=== PATIENT | male | born 1970 | race Hispanic/Latino ===

== ENCOUNTER 2019-08-28 16:50 | Inpatient (IN) | payer BC, OTHER ==
[2019-08-28] MEDS ORDERED: HYDROCODONE/APAP 10/325 TAB ONE (17:44)
[2019-08-28] MEDS ORDERED: NA CHLORIDE 0.9% 1,000 ML ONE (17:50)
[2019-08-28 18:34] LABS: Absolute Lymphocytes (CBC) 0.6 K/uL (0.7-4.9); Basophils % 0.1 % (0-1.3); Hematocrit 40.7 % (39.6-49.0); Lymphocytes % 6.6 % (15.3-44.8); MPV 8.5 fL (7.6-11.3); RBC Red Blood Cell Count 4.86 M/uL (4.33-5.43)
[2019-08-28 18:39] LABS: Protime INR 1.11
--- NOTE | 2019-08-28 18:40 | RAD REPORT ---
EXAM DESCRIPTION: RAD - Chest Single View - 08/28/2019 5:47 pm CLINICAL HISTORY: Cough;SOB;Fever COMPARISON: None TECHNIQUE: AP portable chest image was obtained 08/28/2019 5:47 pm . FINDINGS: Lung volumes are low. Interstitial opacification is present throughout the lung oconnell rojelio ng with patchy airspace disease more notable in the left lung field. Cardiac silhouette is enlarged. Pulmonary vasculature is increased. No measurable pleural effusion and no pneumothorax. No acute bony abnormality seen. No acute aortic findings suspected. IMPRESSION: Limited shallow inspiration exam shows bilateral interstitial and left lower lung field alveolar opacities. In the setting of fever, left base pneumonia is favored. Presentation is mixed and a component of dixie lure or volume overload is possible.
[2019-08-28] MEDS ORDERED: DIAZEPAM 2 MG TABLET ONE (18:56)
[2019-08-28] MEDS ORDERED: dexAMETHasone 10 MG/ML VIAL ONE (18:56)
[2019-08-28] MEDS ORDERED: AZITHROMYCIN 500 MG INJ IVPB ONE (18:56)
[2019-08-28] MEDS ORDERED: CEFTRIAXONE/SWI 1gm 1 GM/10 ML SYR ONE (18:57)
[2019-08-28] MEDS ORDERED: NA CHLORIDE 0.9% 250 ML ONE (18:57)
[2019-08-28 18:58] LABS: Albumin 2.9 g/dL (3.4-5.0); Bilirubin Direct 0.3 mg/dL (0-0.2); Bilirubin Total 0.9 mg/dL (0.2-1.0); Ferritin 1256.9 ng/mL (26-388); Potassium 3.2 mmol/L (3.5-5.1); Protein, Total 7.4 g/dL (6.4-8.2); Troponin (Emerg Dept Use Only) 0.03 ng/mL (0.0-0.045)
[2019-08-28 19:15] LABS: Blood Morphology Comment NOT SEEN (NOT SEEN); Platelet Estimate ADEQ
--- NOTE | 2019-08-28 19:24 | EDPHYS ---
Physician Documentation [facility] Name: Eric Guerrero Age: 48 yrs Sex: Male : 1970 Arrival Date: 08/28/2019 Time: 16:56 Bed 19 Private MD: ED Physician Lucila Euceda HPI: 08/27 19:19 This 48 yrs old Male presents to ER via Ambulatory with complaints of Cough, snw Breathing Difficulty. 19:19 The patient or guardian reports cough, difficulty breathing, flu symptoms. Onset: The snw symptoms/episode began/occurred gradually, 5 day(s) ago, and became worse and became persistent. Severity of symptoms: At their worst the symptoms were severe. Associated signs and symptoms: Pertinent positives: diarrhea, fever, nausea. The patient has not experienced similar symptoms in the past. The patient has not recently seen a physician. PCP called pt out some cough medication which has not been helpful per report. Historical: - Allergies: 17:16 No Known Allergies; bp - Home Meds: 17:16 Metformin Oral [Active]; bp - PMHx: 17:16 Diabetes - NIDDM; bp - Immunization history:: Adult Immunizations unknown. - Social history:: Smoking status: Patient denies any tobacco usage or history of. ROS: 19:19 Eyes: Negative for injury, pain, redness, and discharge, ENT: Negative for injury, snw pain, and discharge, Neck: Negative for injury, pain, and swelling, Cardiovascular: Negative for chest pain, palpitations, and edema. 19:19 Back: Negative for injury and pain, : Negative for injury, bleeding, discharge, and swelling, MS/Extremity: Negative for injury and deformity, Skin: Negative for injury, rash, and discoloration, Neuro: Negative for headache, weakness, numbness, tingling, and seizure, Psych: Negative for depression, anxiety, suicide ideation, homicidal ideation, and hallucinations. 19:19 Constitutional: Positive for body aches, chills, fatigue, fever, malaise, poor PO intake. 19:19 Respiratory: Positive for cough, dyspnea on exertion, shortness of breath. 19:19 Abdomen/GI: Positive for diarrhea. Exam: 19:17 Head/Face: Normocephalic, atraumatic. Eyes: Pupils equal round and reactive to light, snw extra-ocular motions intact. Lids and lashes normal. Conjunctiva and sclera are non-icteric and not injected. Cornea within normal limits. Periorbital areas with no swelling, redness, or edema. ENT: Nares patent. No nasal discharge, no septal abnormalities noted. Tympanic membranes are normal and external auditory canals are clear. Oropharynx with no redness, swelling, or masses, exudates, or evidence of obstruction, uvula midline. Mucous membranes moist. Neck: Trachea midline, no thyromegaly or masses palpated, and no cervical lymphadenopathy. Supple, full range of motion without nuchal rigidity, or vertebral point tenderness. No Meningismus. Chest/axilla: Normal chest wall appearance and motion. Nontender with no deformity. No lesions are appreciated. 19:17 Abdomen/GI: Soft, non-tender, with normal bowel sounds. No distension or tympany. No guarding or rebound. No evidence of tenderness throughout. Back: No spinal tenderness. No costovertebral tenderness. Full range of motion. Skin: Warm, dry with normal turgor. Normal color with no rashes, no lesions, and no evidence of cellulitis. MS/ Extremity: Pulses equal, no cyanosis. Neurovascular intact. Full, normal range of motion. Neuro: Awake and alert, GCS 15, oriented to person, place, time, and situation. Cranial nerves II-XII grossly intact. Motor strength 5/5 in all extremities. Sensory grossly intact. Cerebellar exam normal. Normal gait. Psych: Awake, alert, with orientation to person, place and time. Behavior, mood, and affect are within normal limits. 19:17 Constitutional: The patient appears awake, febrile, listless, obese, obviously ill, uncomfortable. 19:17 Cardiovascular: Rate: tachycardic, Rhythm: regular, Pulses: no pulse deficits are appreciated, Heart sounds: normal, Edema: is not appreciated. 19:17 Respiratory: mild respiratory distress is noted, moderate respiratory distress is noted, Respirations: nasal flaring, that is moderate, shallow respirations, that is moderate, tachypnea, that is severe, Breath sounds: decreased breath sounds, that are moderate, are located in both bases, Respiratory rate: 38 down to 26 on oxygen 19:55 ECG was reviewed by the Attending Physician. snw Vital Signs: 17:13 BP 156 / 89; Pulse 123; Resp 28; Temp 103.1; Pulse Ox 88% on R/A; Weight 158.76 kg; bp Height 6 ft. 6 in. (198.12 cm); 19:04 BP 134 / 68; Pulse 104; Resp 26; Temp 101.6; Pulse Ox 91% ; ah 20:20 BP 125 / 63; Pulse 102; Resp 24; Pulse Ox 91% ; ah 17:13 Body Mass Index 40.45 (158.76 kg, 198.12 cm) bp MDM: 18:46 Patient medically screened. snw 19:20 Data reviewed: vital signs, nurses notes. Data interpreted: Pulse oximetry: on room air snw is 85 %. Interpretation: hypoxia. Plan: O2 by NC applied. Counseling: I had a detailed discussion with the patient and/or guardian regarding: the historical points, exam findings, and any diagnostic results supporting the discharge/admit diagnosis, lab results, radiology results, the need for further work-up and treatment in the hospital. Physician consultation: Lucila Abdi MD was called at 19:21, was contacted at 19:21, regarding admission, Covid floor, would like further tests performed, CT scan. 19:56 ED course: pt returned from CT, feeling significantly better at this time.. snw 08/27 17:25 Order name: Blood Culture Adult (2) snw 08/27 17:25 Order name: BMP w 08/27 17:25 Order name: C-Reactive Protein; Complete Time: 19:32 snw 08/27 17:25 Order name: CBC with Diff; Complete Time: 19:17 snw 08/27 17:25 Order name: COVID-19 snw 08/27 17:25 Order name: D-Dimer; Complete Time: 18:45 snw 08/27 17:25 Order name: Ferritin; Complete Time: 19:32 snw 08/27 17:25 Order name: Flu; Complete Time: 19:32 snw 08/27 17:25 Order name: Lactate; Complete Time: 19:09 snw 08/27 17:25 Order name: LFT's; Complete Time: 19:32 snw 08/27 17:25 Order name: Lipase; Complete Time: 19:32 snw 08/27 17:25 Order name: Procalcitonin; Complete Time: 19:23 snw 08/27 17:25 Order name: PT-INR; Complete Time: 18:45 snw 08/27 17:25 Order name: Ptt, Activated; Complete Time: 18:45 snw 08/27 17:25 Order name: Strep; Complete Time: 19:32 snw 08/27 17:25 Order name: Troponin (emerg Dept Use Only); Complete Time: 19:32 snw 08/27 17:25 Order name: Urine Microscopic Only; Complete Time: 20:42 snw 08/27 17:26 Order name: Blood Culture EDMS 08/27 17:26 Order name: Basic Metabolic Panel; Complete Time: 19:32 EDMS 08/27 18:42 Order name: Manual Differential; Complete Time: 19:17 EDMS 08/27 19:26 Order name: Throat Culture EDMS 08/27 20:26 Order name: Urine Dipstick--Ancillary (enter results); Complete Time: 20:42 2 08/27 20:37 Order name: CBC with Automated Diff EDMS 08/27 20:37 Order name: CBC with Automated Diff EDMS 08/27 20:37 Order name: Comprehensive Metabolic Panel EDMS 08/27 20:37 Order name: Comprehensive Metabolic Panel EDMS 08/27 20:38 Order name: Lactate EDMS 08/27 20:38 Order name: Lactate EDMS 08/27 20:38 Order name: Lipid Profile EDMS 08/27 20:38 Order name: Lipid Profile EDMS 08/27 17:25 Order name: CXR XRAY; Complete Time: 18:45 snw 08/27 17:25 Order name: EKG; Complete Time: 17:27 snw 08/27 17:25 Order name: Cardiac monitoring; Complete Time: 18:37 snw 08/27 17:25 Order name: Document PUI# snw 08/27 17:25 Order name: Droplet/Contact Precautions; Complete Time: 17:52 snw 08/27 17:25 Order name: EKG - Nurse/Tech; Complete Time: 17:52 snw 08/27 17:25 Order name: IV Start; Complete Time: 18:37 snw 08/27 17:25 Order name: Labs collected and sent; Complete Time: 18:37 snw 08/27 17:25 Order name: Notify Health Dept [phone]/ [facility] 08/27 19:17 Order name: CT Chest For PE Angio; Complete Time: 19:58 snw 08/27 20:37 Order name: CONS Physician Consult EDKY 08/27 20:37 Order name: Heart Healthy EDMS 08/27 20:38 Order name: Magnesium EDMS 08/27 20:38 Order name: Magnesium EDMS 08/27 20:38 Order name: NT PRO-BNP EDMS 08/27 20:38 Order name: NT PRO-BNP EDMS 08/27 20:38 Order name: Phosphorus EDMS 08/27 20:38 Order name: Phosphorus EDMS 08/27 20:38 Order name: Protime (+INR) EDMS 08/27 20:38 Order name: Protime (+INR) EDMS 08/27 20:38 Order name: PTT, Activated Partial Thromb EDMS 08/27 20:38 Order name: PTT, Activated Partial Thromb EDMS 08/27 20:38 Order name: T4 Free EDMS 08/27 20:38 Order name: T4 Free EDMS 08/27 20:38 Order name: Thyroid Stimulating Hormone EDMS 08/27 20:38 Order name: Thyroid Stimulating Hormone EDKY 08/27 17:25 Order name: O2 Per Protocol; Complete Time: 17:52 snw 08/27 17:25 Order name: O2 Sat Monitoring; Complete Time: 17:52 snw EC:58 Rate is 116 beats/min. Rhythm is regular. QRS [place] is Normal. ND interval is normal. snw QRS interval is normal. QT interval is normal. No Q waves. Clinical impression: NSR w/ Non-specific ST/T Changes. Administered Medications: 18:00 Drug: NS 0.9% 1000 ml Route: IV; Rate: 1 bolus; Site: left forearm; ah 20:40 Follow up: Response: No adverse reaction; IV Status: Completed infusion ah 18:00 Drug: [place] 10 mg-325 mg 1 tabs Route: PO; ah 19:03 Follow up: Response: No adverse reaction; Pain is decreased 19:02 Drug: Decadron - Dexamethasone 10 mg Route: IVP; Site: left forearm; 20:39 Follow up: Response: No adverse reaction 19:02 Drug: Valium 2 mg Route: PO; ah 20:39 Follow up: Response: No adverse reaction 19:03 Drug: Zithromax 500 mg Route: IVPB; Infused Over: 1 hrs; Site: right forearm; 19:03 Drug: Rocephin 1 grams Route: IV; Rate: calculated rate; Site: left forearm; 20:39 Follow up: Response: No adverse reaction; IV Status: Completed infusion Disposition: 08/28 13:46 Co-signature as Attending Physician, Lucila Euceda MD. [facility] Disposition: 08/28/19 19:23 Hospitalization ordered by Lucila Abdi for Inpatient Admission. Preliminary diagnosis are Pneumonia due to SARS-associated coronavirus, Hypoxemia. - Bed requested for Telemetry/MedSurg (Inpatient). - Status is Inpatient Admission. sg - Condition is Fair. - Problem is new. - Symptoms have improved. Signatures: Dispatcher [employer] EDMS Zakiya Rendon RN RN Garfield Short RN RN Ana Luisa Chavarria, COPPERSMITH HELPER-C COPPERSMITH HELPER-Csnw Jaime Castro RN CHIQUIS Lucila Euceda MD MD [facility] Claire Edmondson RN RN Corrections: (The following items were deleted from the chart) 08/27 20:08 19:23 Hospitalization Ordered by Lucila Abdi MD for Inpatient Admission. Preliminary diagnosis is Pneumonia due to SARS-associated coronavirus; Hypoxemia. Bed requested for Telemetry/MedSurg (Inpatient). Status is Inpatient Admission. Condition is Fair. Problem is new. Symptoms have improved. snw 21:42 20:08 08/28/2019 19:23 Hospitalization Ordered by Lucila Abdi MD for Inpatient sg Admission. Preliminary diagnosis is Pneumonia due to SARS-associated coronavirus; Hypoxemia. Bed requested for Telemetry/MedSurg (Inpatient). Status is Inpatient Admission. Condition is Fair. Problem is new. Symptoms have improved. mw
--- NOTE | 2019-08-28 19:24 | ER ---
Nurse's Notes [facility] Name: Eric Guerrero Age: 48 yrs Sex: Male : 1970 Arrival Date: 08/28/2019 Time: 16:56 Bed 19 Private MD: Diagnosis: Pneumonia due to SARS-associated coronavirus;Hypoxemia Presentation: 08/27 17:13 Chief complaint: Patient states: COUGH, FEVER, SOB x1 WEEK. Coronavirus screen: bp Surgical mask placed on patient. Patient moved to private room, placed in contact and droplet isolation with eye protection until further assessment. Patient reports a cough. Patient reports shortness of breath or difficulty breathing. Patient reports a measured and/or subjective temperature greater than 100.4F. Patient denies travel on a cruise ship or to a country the [facility] currently lists as an affected area. Patient denies contact with known and/or suspected case of COVID-19. SWABBED ON SATURDAY, NO RESULTS YET. Ebola Screen: No symptoms or risks identified at this time. Initial Sepsis Screen: Does the patient meet any 2 criteria? RR > 20 per min. Temp <36.0*C (96.8*F)) or > 38.3*C (100.9*F). HR > 90 bpm. Yes Does the patient have a suspected source of infection? Yes: Productive cough/pneumonia. Risk Assessment: Do you want to hurt yourself or someone else? Patient reports no desire to harm self or others. Onset of symptoms is unknown. 17:13 Method Of Arrival: Ambulatory bp 17:13 Acuity: RAMA 2 bp 17:36 Initial Sepsis Screen: Does the patient meet any 2 criteria?. Historical: - Allergies: 17:16 No Known Allergies; bp - Home Meds: 17:16 Metformin Oral [Active]; bp - PMHx: 17:16 Diabetes - NIDDM; bp - Immunization history:: Adult Immunizations unknown. - Social history:: Smoking status: Patient denies any tobacco usage or history of. Screenin:40 Abuse screen: Denies threats or abuse. Nutritional screening: No deficits noted. Tuberculosis screening: No symptoms or risk factors identified. Fall Risk None identified. Assessment: 17:40 General: Appears uncomfortable, Behavior is calm, cooperative, appropriate for age. General: Reports fever for 1-2 days. Pain: Denies pain. Pain: Denies pain. Complains of pain in generalized. Neuro: Level of Consciousness is awake, alert, Oriented to person, place, time, situation, Appropriate for age. Cardiovascular: Capillary refill < 3 seconds Patient's skin is warm and dry. Rhythm is sinus tachycardia. Respiratory: Reports shortness of breath at rest cough that is non-productive, air hunger Airway is patent Respiratory effort is even, labored, Respiratory pattern is regular, symmetrical, the patient has moderate shortness of breath. GI:. Derm: Skin is intact, is healthy with good turgor. Vital Signs: 17:13 BP 156 / 89; Pulse 123; Resp 28; Temp 103.1; Pulse Ox 88% on R/A; Weight 158.76 kg; bp Height 6 ft. 6 in. (198.12 cm); 19:04 BP 134 / 68; Pulse 104; Resp 26; Temp 101.6; Pulse Ox 91% ; ah 20:20 BP 125 / 63; Pulse 102; Resp 24; Pulse Ox 91% ; ah 17:13 Body Mass Index 40.45 (158.76 kg, 198.12 cm) bp ED Course: 16:56 Patient arrived in ED. mr 17:15 Triage completed. bp 17:16 Arm band placed on. bp 17:22 Ana Luisa Chavarria FNP-C is [facility]. snw 17:22 Lucila Euceda MD is Attending Physician. snw 17:25 Claire Edmondson, RN is Primary Nurse. ah 17:46 CXR XRAY In Process Unspecified. EDMS 18:38 Initial lab(s) drawn, by ED staff, sent to lab. First set of blood cultures drawn by ED ah staff, EKG done, by ED staff, reviewed by Ana Luisa JOE. Inserted saline lock: 18 gauge in right forearm, using aseptic technique. 18:39 Inserted saline lock: 20 gauge in left forearm, using aseptic technique. ah 18:39 Oxygen administration via nasal cannula \T\ 4L/min Response to oxygen therapy: symptoms ah improved. 18:40 Patient has correct armband on for positive identification. Placed in gown. Bed in low ah position. Call light in reach. Side rails up X 1. teletypesetter monitor on. Pulse ox on. NIBP on. 19:22 Lucila Abdi MD is Hospitalizing Provider. snw 19:41 CT Chest For PE Angio In Process Unspecified. EDMS 20:10 Urine collected: clean catch specimen, clear, regan colored. jp3 Administered Medications: 18:00 Drug: NS 0.9% 1000 ml Route: IV; Rate: 1 bolus; Site: left forearm; 20:40 Follow up: Response: No adverse reaction; IV Status: Completed infusion 18:00 Drug: [place] 10 mg-325 mg 1 tabs Route: PO; 19:03 Follow up: Response: No adverse reaction; Pain is decreased 19:02 Drug: Decadron - Dexamethasone 10 mg Route: IVP; Site: left forearm; 20:39 Follow up: Response: No adverse reaction 19:02 Drug: Valium 2 mg Route: PO; 20:39 Follow up: Response: No adverse reaction 19:03 Drug: Zithromax 500 mg Route: IVPB; Infused Over: 1 hrs; Site: right forearm; 19:03 Drug: Rocephin 1 grams Route: IV; Rate: calculated rate; Site: left forearm; 20:39 Follow up: Response: No adverse reaction; IV Status: Completed infusion Outcome: 19:23 Decision to Hospitalize by Provider. snw 20:27 Admitted to Tele accompanied by tech, via stretcher, room 404, with oxygen, with chart, Report called to CHIQUIS Obrien 20:27 Condition: stable 20:27 Instructed on the need for admit. 21:42 Patient left the ED. sg Signatures: Dispatcher [employer] EDGarfield Wilson RN CHIQUIS sg Ana Luisa Chavarria, PRISON TEACHERDanielleC PRISON TEACHER-Leticia Foster Brian, RN RN Fransico Russo jp3 Claire Edmondson, RN CHIQUIS Corrections: (The following items were deleted from the chart) 20:10 19:04 BP 134 / 68; Pulse 104bpm; Resp 26bpm; Pulse Ox 95%; Temp 101.6F; ah
--- NOTE | 2019-08-28 19:54 | RAD REPORT ---
EXAM DESCRIPTION: CT - Chest For Pe Angio - 08/28/2019 7:41 pm CLINICAL HISTORY: Fever;Dyspnea;Cough COMPARISON: Chest Single View dated 08/28/2019 TECHNIQUE: Dynamically enhanced 3 mm thick images of the chest were obtained during administration o f approximately 150mL Isovue 370 IV contrast. Coronal and oblique MIP reconstruction images were gene rated and reviewed. Exam utilizes a protocol to evaluate the pulmonary arterial tree. All CT scans are performed using dose optimization technique as appropriate and may include automated exposure control or mA/KV adjustment according to patient size. FINDINGS: No pulmonary emboli are identified. The aorta as imaged shows no acute or suspicious finding. No pericardial thickening or effusion. Is Numerous ground-glass opacities are present throughout both lung oconnell primarily in a peripheral dis tribution. No dense consolidation. No mass lesion identified. No endobronchial lesions seen. No pleur al effusion or pleural thickening. No mediastinal or hilar suspicious masses. No chest wall masses or abnormal axillary lymphadenopathy. IMPRESSION: No pulmonary emboli identified. Bilateral ground-glass opacities throughout the lung oconnell. In the current clinical environment, COV ID-19 pneumonia should be strongly considered. Ground-glass opacification from failure or volume overload can have this appearance as well.
[2019-08-28] MEDS ORDERED: ONDANSETRON 4 MG/2 ML VIAL IV PRN (20:26)
[2019-08-28 20:39] LABS: Urine Bacteria <20 /HPF (NONE SEEN); Urine Culture Reflex Order NOT NEEDED; Urine RBC <5 /HPF (NONE SEEN)
[2019-08-28 20:41] LABS: Urine Blood 2+ (NEG); Urine Glucose NEGATIVE (NEG); Urine Protein 2+ (NEG); Urine Specific Gravity 1.015 (1.005-1.030); Urine pH 6.5 (5.0-7.0)
[2019-08-28] MEDS ORDERED: CEFTRIAXONE 1 GM/NS 50 ML 1 GM/50 ML BAG IV SCH (21:00)
[2019-08-28] MEDS ORDERED: NA CHLORIDE 0.9% 1,000 ML IV SCH (21:00)
[2019-08-28 22:23] VITALS: BMI 42.2
[2019-08-28] MEDS ORDERED: POTASSIUM CL SA 10 MEQ TAB PO ONE (22:38)
[2019-08-28] MEDS: ENOXAPARIN 40 MG/0.4 ML SQ SCH (23:02)
[2019-08-29] MEDS: dexAMETHasone 10 MG/ML VIAL IV SCH ×3 (00:34→17:14)
[2019-08-29] MEDS: GUAIFENESIN/CODEINE 5ML UCUP PO PRN (05:36)
[2019-08-29 06:45] LABS: Absolute Lymphocytes (CBC) 0.4 K/uL (0.7-4.9); Basophils % 0.1 % (0-1.3); Hematocrit 40.4 % (39.6-49.0); Lymphocytes % 4.5 % (15.3-44.8); MPV 9.3 fL (7.6-11.3); RBC Red Blood Cell Count 4.79 M/uL (4.33-5.43)
[2019-08-29 06:50] LABS: Protime INR 1.05
[2019-08-29 07:10] LABS: Albumin 2.7 g/dL (3.4-5.0); Bilirubin Total 0.7 mg/dL (0.2-1.0); Magnesium 2.2 mg/dL (1.8-2.4); Phosphorus 2.7 mg/dL (2.5-4.9); Potassium 4.1 mmol/L (3.5-5.1); Protein, Total 7.1 g/dL (6.4-8.2); Thyroid Stimulating Hormone 0.55 uIU/mL (0.360-3.740)
--- NOTE | 2019-08-29 07:49 | P.HP ---
Certification for Inpatient Patient admitted to: Inpatient With expected LOS: >2 Midnights Patient will require the following post-hospital care: None Practitioner: I am a practitioner with admitting privileges, knowledge of patient current condition, hospital course, and medical plan of care. Services: Services provided to patient in accordance with Admission requirements found in Title 42 Section 412.3 of the Code of Federal Regulations Patient History Date of Service: 08/28/19 Reason for admission: COVID-19 pneumonia History of Present Illness: Patient is a 48-year-old gentleman who is been short of breath for the last few days. His symptoms have gradually worsened and he is going to see his PCP and had COVID-19 testing performed. Results were is going to take 4-5 days. He had this done on . His symptoms got gradually worse so he came into the emergency room. His x-ray revealed ground-glass opacities. His D-dimer was elevated. He was hypoxic and was requiring more oxygen in the emergency room. Decision was made to do a CT PE protocol. This only revealed the up viral pneumonia. At this time, patient be admitted to the hospital and placed on high-flow oxygen. If we do not have this available then will place on nasal cannula and adjust as go accordingly. Pulmonary consultation. Continue with dexamethasone and antibiotic therapy. Inhaler to bedside. Also recommend patient being in prone position or on his side. Will monitor very closely on general medical floor. Allergies No Known Allergies Allergy (Unverified 08/28/19 22:23) Home Medications: Exenatide Microspheres [Bydureon Pen] 1 noah SQ EVERY 7TH DAY 08/28/19 Metformin HCl [Glucophage] 1 tab PO BID 08/28/19 clomiPHENE citrate [Clomiphene Citrate] 1 tab PO SEECOM 08/28/19 - Past Medical/Surgical History Has patient received pneumonia vaccine in the past: No Diabetic: Yes -: DM -: low back surgery -bulging disc - Family History Father Medical History: Diabetes Mother Medical History: Diabetes - Social History Smoking Status: Never smoker Alcohol use: Yes CD- Drugs: No Caffeine use: No Place of Residence: Home Review of Systems 10-point ROS is otherwise unremarkable Physical Examination - Vital Signs Temperature: 99.1 F Blood Pressure: 120/71 Pulse: 95 Respirations: 19 Pulse Ox (%): 91 - Physical Exam General: Alert, In no apparent distress, Oriented x3, Obese HEENT: Atraumatic, PERRLA, Mucous membr. moist/pink, EOMI, Sclerae nonicteric Neck: Supple, 2+ carotid pulse no bruit, No LAD, Without JVD or thyroid abnormality Respiratory: Diminished, Expiratory wheezes Cardiovascular: Regular rate/rhythm, Normal S1 S2, No murmurs Gastrointestinal: Normal bowel sounds, Soft and benign, Non-distended, No tenderness Musculoskeletal: No clubbing, No swelling, No tenderness Integumentary: No rashes Neurological: Normal gait, Normal speech, Normal strength at 5/5 x4 extr, Normal tone, Sensation intact, Cranial nerves 3-12 intact, Normal affect Lymphatics: No axilla or inguinal lymphadenopathy - Studies Laboratory Data (last 24 hrs) 08/28/19 18:15: PT 13.1 H, INR 1.11, APTT 26.4 08/28/19 18:15: WBC 8.5, Hgb 13.7, Hct 40.7, Plt Count 111 L 08/28/19 18:15: Sodium 128 L, Potassium 3.2 L, BUN 9, Creatinine 0.94, Glucose 187 H, Total Bilirubin 0.9, AST 72 H, ALT 54, Alkaline Phosphatase 62, Lipase 65 L Microbiology Data (last 24 hrs): 08/28/19 18:05 Nasopharnyx Coronavirus COVID-19 PCR - Final 08/28/19 18:05 Throat Group A Streptococcus Rapid Screen - Final 08/28/19 18:05 Nasopharnyx Influenza Type A Antigen Screen - Final 08/28/19 18:05 Nasopharnyx Influenza Type B Antigen Screen - Final Assessment & Plan - Problems (Diagnosis) (1) COVID-19 virus infection Current Visit: Yes Status: Acute (2) Hypoxemia Current Visit: Yes Status: Acute - Plan 1. Continue with IV antibiotics 2. Awaiting COVID-19 testing 3. Repeat chest x-ray is symptoms are progressively worsening 4. High-flow oxygen or if not available adjust oxygen as necessary; prone position; 5. Pulmonary consultation 6. Continue with albuterol inhaler therapy; IV dexamethasone; zinc and vitamin-C 7. O2 per protocol 8. Continue with gentle hydration 9. Repeat labs including D-dimer, ferritin, and CRP 10. GI and DVT prophylaxis Discharge Plan: Home Plan to discharge in: Greater than 2 days - Advance Directives Does patient have a Living Will: No Does patient have a Durable POA for Healthcare: No - Code Status/Comfort Care Code Status Assessed: Yes Code Status: Full Code Critical Care: No Time Spent Managing PTS Care (In Minutes): 40
--- NOTE | 2019-08-29 07:52 | P.PN ---
Subjective Date of Service: 08/29/19 Patient states he is feeling better. However, his oxygen requirements have gone up. Currently he is on a Venti mask at 50%. Once he gets into the prone position his oxygen level goes up to 90-93%. He is not able to stay that way and has to lay on his side which I have encouraged him to rotate in size. Janee aranamonary consultation later today. Review of Systems 10-point ROS is otherwise unremarkable Physical Examination - Vital Signs Temperature: 99.1 F Blood Pressure: 120/71 Pulse: 95 Respirations: 19 Pulse Ox (%): 91 - Physical Exam General: Alert, In no apparent distress, Oriented x3 Respiratory: Diminished, Rhonchi/gurgles Cardiovascular: Regular rate/rhythm, Normal S1 S2, No murmurs Gastrointestinal: Normal bowel sounds, Soft and benign, Non-distended, No tenderness Musculoskeletal: No clubbing, No swelling, No tenderness Lymphatics: No axilla or inguinal lymphadenopathy - Studies Laboratory Data (last 24 hrs) 08/28/19 18:15: PT 13.1 H, INR 1.11, APTT 26.4 08/28/19 18:15: WBC 8.5, Hgb 13.7, Hct 40.7, Plt Count 111 L 08/28/19 18:15: Sodium 128 L, Potassium 3.2 L, BUN 9, Creatinine 0.94, Glucose 187 H, Total Bilirubin 0.9, AST 72 H, ALT 54, Alkaline Phosphatase 62, Lipase 65 L Microbiology Data (last 24 hrs): 08/28/19 18:05 Nasopharnyx Coronavirus COVID-19 PCR - Final 08/28/19 18:05 Throat Group A Streptococcus Rapid Screen - Final 08/28/19 18:05 Nasopharnyx Influenza Type A Antigen Screen - Final 08/28/19 18:05 Nasopharnyx Influenza Type B Antigen Screen - Final Medications List Reviewed: Yes Assessment & Plan - Problems (Diagnosis) (1) COVID-19 virus infection Current Visit: Yes Status: Acute (2) Hypoxemia Current Visit: Yes Status: Acute - Plan Continue with current plan of care as mentioned below; oxygen requirements have gone up. Currently on Venti-mask at 50%. 1. Continue with IV antibiotics 2. Awaiting COVID-19 testing 3. Repeat chest x-ray if symptoms are progressively worsening 4. High-flow oxygen or if not available adjust oxygen as necessary; prone position; 5. Pulmonary consultation 6. Continue with albuterol inhaler therapy; IV dexamethasone; zinc and vitamin-C 7. O2 per protocol 8. Continue with gentle hydration 9. Repeat labs including D-dimer, ferritin, and CRP 10. GI and DVT prophylaxis Discharge Plan: Home Plan to discharge in: Greater than 2 days - Advance Directives Does patient have a Living Will: No Does patient have a Durable POA for Healthcare: No - Code Status/Comfort Care Code Status: Full Code Critical Care: No Time Spent Managing PTS Care (In Minutes): 25
--- NOTE | 2019-08-29 08:56 | EKG ---
Test Date: 2019-08-28 Test Time: 17:57:17 [employer] Specialist: LATOYA MEASUREMENT RESULTS: Intervals: Rate: 116 [place]: 140 QRSD: 84 QT: 310 QTc: 430 [place]: P: 33 [place]: 140 QRS: 24 T: 41 INTERPRETIVE STATEMENTS: Sinus tachycardia Cannot rule out Anterior infarct, age undetermined Abnormal ECG No previous ECG available for comparison Electronically Signed On 08-29-19 08:55:15 CDT by Andrey Barrett
[2019-08-29] MEDS ORDERED: CEFTRIAXONE 1 GM/NS 50 ML 1 GM/50 ML BAG IV SCH (09:00)
[2019-08-29] MEDS ORDERED: CEFTRIAXONE/SWI 1gm 1 GM/10 ML SYR IVP SCH (09:00)
[2019-08-29] MEDS ORDERED: ENOXAPARIN 40 MG/0.4 ML SQ SCH (09:00)
[2019-08-29] MEDS ORDERED: FUROSEMIDE 20 MG/ 2ML VIAL IV SCH (09:00)
[2019-08-29] MEDS: levoFLOXacin 500 MG TAB PO SCH (09:55)
[2019-08-29] MEDS: ENOXAPARIN 40 MG/0.4 ML SQ SCH ×2 (09:57→20:17)
[2019-08-29] MEDS: ALBUTEROL INHALER 60 PUFF/8 GM IH PRN (10:07)
--- NOTE | 2019-08-29 11:37 | P.CNS ---
Date of Consult: 08/29/19 Reason for Consult: covid pneumonai Chief Complaint: COVID-19 pneumonia History of Present Illness: Patient is 48 years of age the complaining of progressive shortness of breath CT scan shows bilateral ground-glass changes he was hypoxic admitted to the hospit al for the possibility of snell virus infection/ Allergies No Known Allergies Allergy (Unverified 08/28/19 22:23) Home Medications: Exenatide Microspheres [Bydureon Pen] 1 noah SQ EVERY 7TH DAY 08/28/19 Metformin HCl [Glucophage] 1 tab PO BID 08/28/19 clomiPHENE citrate [Clomiphene Citrate] 1 tab PO SEECOM 08/28/19 - Past Medical/Surgical History Diabetic: Yes -: DM -: low back surgery -bulging disc - Family History Father Medical History: Diabetes Mother Medical History: Diabetes - Social History Alcohol use: Yes CD- Drugs: No Caffeine use: No Place of Residence: Home Review of Systems General: Weakness Respiratory: Shortness of Breath Physical Examination Temp Pulse Resp BP Pulse Ox 99.1 F 108 H 19 143/83 H 91 08/29/19 07:52 08/29/19 10:04 08/29/19 07:52 08/29/19 10:04 08/29/19 07:52 General: Other (Deferred) Laboratory Data (last 24 hrs) 08/28/19 18:15: PT 13.1 H, INR 1.11, APTT 26.4 08/28/19 18:15: WBC 8.5, Hgb 13.7, Hct 40.7, Plt Count 111 L 08/28/19 18:15: Sodium 128 L, Potassium 3.2 L, BUN 9, Creatinine 0.94, Glucose 187 H, Total Bilirubin 0.9, AST 72 H, ALT 54, Alkaline Phosphatase 62, Lipase 65 L - Problems (1) COVID-19 virus infection Current Visit: Yes Status: Acute Plan: Patient is 48 years of age admitted with coronal virus infection pneumonia continue with steroids IV Lasix BiPAP he has got characteristic bone bilateral ground-glass changes history of diabetes patient has fever all labs reviewed
[2019-08-29] MEDS: FUROSEMIDE 20 MG/ 2ML VIAL IV SCH (17:14)
[2019-08-29] MEDS ORDERED: AZITHROMYCIN IV 500 MG in NA CHLORIDE 0.9% 250 ML IVPB SCH (19:00)
[2019-08-29] MEDS: ALPRAZOLAM 0.25 MG TABLET PO PRN (20:17)
[2019-08-29] MEDS ORDERED: GLUCAGON 1 MG/VIAL IM PRN (21:05)
[2019-08-29] MEDS ORDERED: D50W 25 GM/50 ML SYRINGE/VIAL IV PRN (21:05)
[2019-08-29] MEDS: INSULIN GLARGINE 100 UNITS/ML SQ SCH (21:19)
[2019-08-29] MEDS: ACETAMINOPHEN 500 MG TAB PO PRN (22:26)
[2019-08-30] MEDS: dexAMETHasone 10 MG/ML VIAL IV SCH (00:11)
[2019-08-30] MEDS: dexAMETHasone 4 MG/ML VIAL IV SCH ×2 (08:10→17:38)
[2019-08-30] MEDS: FUROSEMIDE 20 MG/ 2ML VIAL IV SCH ×2 (08:11→17:37)
[2019-08-30] MEDS: levoFLOXacin 500 MG TAB PO SCH (08:12)
[2019-08-30] MEDS: ENOXAPARIN 40 MG/0.4 ML SQ SCH ×2 (08:12→21:30)
[2019-08-30] MEDS: ACETAMINOPHEN 500 MG TAB PO PRN (08:12)
[2019-08-30] MEDS: ALBUTEROL INHALER 60 PUFF/8 GM IH PRN ×2 (09:00→21:00)
--- NOTE | 2019-08-30 10:42 | P.PN ---
Subjective Date of Service: 08/30/19 Chief Complaint: COVID-19 pneumonia Subjective: Improving (Patient is doing better feeling better shortness of breath has improved BiPAP is helping) Review of Systems General: Weakness Respiratory: Shortness of Breath Physical Examination - Vital Signs Temperature: 100 F Blood Pressure: 119/62 Pulse: 104 Respirations: 24 Pulse Ox (%): 90 - Physical Exam General: Alert, Oriented x3, Mild distress Respiratory: Crackles/rales Cardiovascular: No edema, Regular rate/rhythm - Studies Medications List Reviewed: Yes Assessment & Plan - Problems (Diagnosis) (1) COVID-19 virus infection Current Visit: Yes Status: Acute Plan: Patient is clinically improving continue with steroids BiPAP continue to monitor when sat as above 90% possible discharge and Lasix labs for tomorrow still less some fever
[2019-08-30] MEDS ORDERED: FUROSEMIDE 20 MG/ 2ML VIAL IV SCH (11:00)
[2019-08-30] MEDS ORDERED: GLUCAGON 1 MG/VIAL IM PRN (17:58)
[2019-08-30] MEDS ORDERED: D50W 25 GM/50 ML SYRINGE/VIAL IV PRN (17:58)
[2019-08-30] MEDS: INSULIN -REGULAR HUMAN 50 UNIT/0.5 ML ML SQ SCH (20:30)
[2019-08-30] MEDS: INSULIN GLARGINE 100 UNITS/ML SQ SCH (20:30)
[2019-08-30] MEDS: ALPRAZOLAM 0.25 MG TABLET PO PRN (22:52)
[2019-08-31] MEDS: dexAMETHasone 4 MG/ML VIAL IV SCH ×4 (00:19→17:21)
[2019-08-31 04:24] LABS: Potassium 3.7 mmol/L (3.5-5.1)
[2019-08-31] MEDS: ENOXAPARIN 40 MG/0.4 ML SQ SCH ×2 (07:47→19:29)
[2019-08-31] MEDS: levoFLOXacin 500 MG TAB PO SCH (07:48)
[2019-08-31] MEDS: FUROSEMIDE 20 MG/ 2ML VIAL IV SCH ×2 (07:48→17:21)
[2019-08-31] MEDS ORDERED: POTASSIUM CL SA 10 MEQ TAB PO ONE (08:00)
[2019-08-31] MEDS: INSULIN -REGULAR HUMAN 50 UNIT/0.5 ML ML SQ SCH ×4 (08:07→21:01)
--- NOTE | 2019-08-31 13:04 | P.PN ---
Subjective Date of Service: 08/31/19 Chief Complaint: COVID-19 pneumonia Subjective: Improving (Patient is feeling better still requiring significant amount of oxygen advice to use BiPAP) Review of Systems Respiratory: Shortness of Breath Physical Examination - Vital Signs Temperature: 98 F Blood Pressure: 141/79 Pulse: 91 Respirations: 20 Pulse Ox (%): 90 - Physical Exam General: Alert, Cooperative - Studies Microbiology Data (last 24 hrs): 08/28/19 18:05 Throat Culture & Sensitivity - Final NORMAL UPPER RESPIRATORY SHIREEN GROWN. Medications List Reviewed: Yes Assessment & Plan - Problems (Diagnosis) (1) COVID-19 virus infection Current Visit: Yes Status: Acute Plan: Patient admitted with COVID pneumonia possible discharge tomorrow vital signs are stable possible discharge tomorrow continue with steroids and Lasix
--- NOTE | 2019-08-31 18:02 | P.PN ---
Subjective Date of Service: 08/31/19 Chief Complaint: COVID-19 pneumonia Subjective: Doing well (Still on nasal cannula) Physical Examination - Vital Signs Temperature: 98.2 F Blood Pressure: 133/81 Pulse: 92 Respirations: 24 Pulse Ox (%): 90 - Physical Exam General: Alert, Cooperative HEENT: Atraumatic Neck: Supple Respiratory: Other (Patient reports improvement in breathing) Cardiovascular: Normal pulses, Regular rate/rhythm Neurological: Normal speech, Normal strength at 5/5 x4 extr, Normal tone, Normal affect - Studies Microbiology Data (last 24 hrs): 08/28/19 18:05 Throat Culture & Sensitivity - Final NORMAL UPPER RESPIRATORY SHIREEN GROWN. Medications List Reviewed: Yes Assessment & Plan Discharge Plan: Home Plan to discharge in: 24 Hours Physician Review Additional Text: Impression: Bilateral pneumonia with hypoxia secondary to COVID 19 infection Diabetes mellitus type 2 Plan: Continue with antibiotic therapy for secondary infection. Continue IV steroids. Continue wean off oxygen. Will offer, less than plasma. Will increase basal insulin. Will continue to adjust medication. Patient overall improved. Possible discharge as early as tomorrow with home oxygen if stable. Will further discuss with pulmonology. Time Spent Managing Pts Care (In Minutes): 55
[2019-08-31] MEDS: ALPRAZOLAM 0.25 MG TABLET PO PRN (19:10)
[2019-08-31] MEDS ORDERED: INSULIN GLARGINE 100 UNITS/ML SQ SCH (21:00)
[2019-09-01] MEDS: dexAMETHasone 4 MG/ML VIAL IV SCH ×2 (00:08→07:18)
[2019-09-01] MEDS: GUAIFENESIN/CODEINE 5ML UCUP PO PRN (00:09)
[2019-09-01 04:03] LABS: Potassium 3.7 mmol/L (3.5-5.1)
[2019-09-01] MEDS ORDERED: POTASSIUM CL SA 10 MEQ TAB PO ONE (04:08)
[2019-09-01] MEDS: ENOXAPARIN 40 MG/0.4 ML SQ SCH ×2 (07:18→21:43)
[2019-09-01] MEDS: levoFLOXacin 500 MG TAB PO SCH (07:19)
[2019-09-01] MEDS: FUROSEMIDE 20 MG/ 2ML VIAL IV SCH (07:19)
[2019-09-01] MEDS: INSULIN -REGULAR HUMAN 50 UNIT/0.5 ML ML SQ SCH ×4 (07:38→21:44)
[2019-09-01] MEDS: FUROSEMIDE 20 MG TABLET PO SCH (08:11)
[2019-09-01] MEDS: SPIRONOLACTONE 25 MG TABLET PO SCH ×2 (08:45→21:42)
--- NOTE | 2019-09-01 13:03 | P.PN ---
Subjective Date of Service: 09/01/19 Chief Complaint: COVID-19 pneumonia Subjective: Improving (Patient is improving doing well still requiring oxygen no new complaints) Review of Systems Unremarkable General: Weakness Physical Examination - Vital Signs Temperature: 98 F Blood Pressure: 126/75 Pulse: 82 Respirations: 18 Pulse Ox (%): 92 - Physical Exam General: Other (Deferred) - Studies Microbiology Data (last 24 hrs): 08/28/19 18:05 Throat Culture & Sensitivity - Final NORMAL UPPER RESPIRATORY SHIREEN GROWN. Medications List Reviewed: Yes Assessment & Plan - Problems (Diagnosis) (1) COVID-19 virus infection Current Visit: Yes Status: Acute Plan: Patient is doing well is clinically improving wants to go home he qualifies for home O2 and be discharged home on about 4 L of oxygen AL I have asked him to monitor his oxygen saturation with a home pulse ox anti use oxygen if his below 90 in go home on low-dose prednisone no antibiotics needed follow-up with a telephone visit in 2 weeks patient is a fever I will
--- NOTE | 2019-09-01 16:25 | P.PN ---
Subjective Date of Service: 09/01/19 Chief Complaint: COVID-19 pneumonia Subjective: Improving, Doing well Physical Examination - Vital Signs Temperature: 98 F Blood Pressure: 131/75 Pulse: 82 Respirations: 18 Pulse Ox (%): 92 - Physical Exam General: Alert HEENT: Atraumatic Neck: Supple Respiratory: Other (Patient still requiring 6 L per nasal cannula) Cardiovascular: Normal pulses Neurological: Normal speech, Normal strength at 5/5 x4 extr, Normal tone, Normal affect - Studies Medications List Reviewed: Yes Assessment & Plan Discharge Plan: Home Plan to discharge in: 24 Hours Physician Review Additional Text: Impression: Bilateral pneumonia with hypoxia secondary to COVID 19 infection Diabetes mellitus type 2 Plan: Bilateral pneumonia with hypoxia secondary to COVID 19 infection: Continue current IV steroids. Continue to wean off oxygen. Patient still requiring high-flow oxygen. If improved with high-flow oxygen will consider discharge w [facility] home oxygen. Patient offered plasma. He has agreed. Will initiate process for this. Case discussed at length with pulmonology. Diabetes mellitus type 2: Continue to adjust insulin therapy. Time Spent Managing Pts Care (In Minutes): 55
[2019-09-01] MEDS: INSULIN GLARGINE 100 UNITS/ML SQ SCH ×2 (21:00→21:43)
[2019-09-02] MEDS: ALPRAZOLAM 0.25 MG TABLET PO PRN (00:29)
[2019-09-02 04:47] LABS: Potassium 3.4 mmol/L (3.5-5.1)
[2019-09-02] MEDS ORDERED: POTASSIUM CL SA 10 MEQ TAB PO ONE (06:00)
[2019-09-02] MEDS: levoFLOXacin 500 MG TAB PO SCH (08:11)
[2019-09-02] MEDS: SPIRONOLACTONE 25 MG TABLET PO SCH ×2 (08:11→20:22)
[2019-09-02] MEDS: FUROSEMIDE 20 MG TABLET PO SCH (08:11)
[2019-09-02] MEDS: ENOXAPARIN 40 MG/0.4 ML SQ SCH (08:11)
[2019-09-02] MEDS: dexAMETHasone 10 MG/ML VIAL IV SCH ×2 (08:21→16:06)
[2019-09-02] MEDS: INSULIN -REGULAR HUMAN 50 UNIT/0.5 ML ML SQ SCH ×3 (08:23→16:06)
[2019-09-02] MEDS ORDERED: dexAMETHasone 10 MG/ML VIAL IV SCH (09:00)
--- NOTE | 2019-09-02 11:47 | P.PN ---
Subjective Date of Service: 09/02/19 Chief Complaint: COVID-19 pneumonia Subjective: Doing well Physical Examination - Vital Signs Temperature: 98.7 F Blood Pressure: 119/73 Pulse: 96 Respirations: 22 Pulse Ox (%): 90 - Physical Exam General: Alert HEENT: Atraumatic Neck: Supple Respiratory: Other (Still requiring high-flow oxygen) Neurological: Normal speech, Normal strength at 5/5 x4 extr, Normal tone - Studies Medications List Reviewed: Yes Assessment & Plan Discharge Plan: Home Plan to discharge in: 72 Hours Physician Review Additional Text: Impression: Bilateral pneumonia with hypoxia secondary to COVID 19 infection Diabetes mellitus type 2 Plan: Bilateral pneumonia with hypoxia secondary to COVID 19 infection: Continue current medications at this time. Patient has agreed for plasma. Will order plasma today. Will discuss further with pulmonology. Patient slowly improving but requiring high-flow oxygen. Continue current management. Diabetes mellitus type 2: Continue to adjust insulin therapy. Time Spent Managing Pts Care (In Minutes): 55
--- NOTE | 2019-09-02 12:34 | P.PN ---
Subjective Date of Service: 09/02/19 Chief Complaint: COVID-19 pneumonia Subjective: Improving (Patient is feeling better although is a requiring significant amount of oxygen all the complain) Review of Systems Respiratory: Shortness of Breath Physical Examination - Vital Signs Temperature: 98.7 F Blood Pressure: 119/73 Pulse: 96 Respirations: 22 Pulse Ox (%): 90 - Physical Exam General: Alert, Oriented x3, Cooperative - Studies Medications List Reviewed: Yes Assessment & Plan - Problems (Diagnosis) (1) COVID-19 virus infection Current Visit: Yes Status: Acute Plan: Patient admitted with snell virus pneumonia continue with BiPAP presume Decadron agree with convalescent plasma chemistries reviewed chest x-ray has been order labs unremarkable Lantus increased
--- NOTE | 2019-09-02 14:49 | RAD REPORT ---
EXAM DESCRIPTION: RAD - Chest Single View - 09/02/2019 2:23 pm CLINICAL HISTORY: Pneumonia COMPARISON: Portable August 27, CT chest August 27 TECHNIQUE: AP portable chest image was obtained 09/02/2019 2:23 pm . FINDINGS: Alveolar opacities are scattered throughout both lung oconnell. Pattern is most prominent in each mid lung field in the left base. Findings are worse on the left. Exam has technical differences compared to the prior study. There is been no improvement from the sakina or study. Left lung field findings may be slightly worse. Heart and vasculature are normal. No measurable pleural effusion and no pneumothorax. No acute bony abnormality seen. No acute aortic findings suspected. IMPRESSION: Bilateral pneumonia pattern worse on the left. Findings are similar to slightly worse than prior study.
[2019-09-02] MEDS: APIXABAN 5 MG TABLET PO SCH (20:22)
[2019-09-02] MEDS ORDERED: NA CHLORIDE 0.9% 100 ML IV ONE (22:04)
[2019-09-03] MEDS: INSULIN GLARGINE 100 UNITS/ML SQ SCH ×2 (00:57→21:19)
[2019-09-03] MEDS: INSULIN -REGULAR HUMAN 50 UNIT/0.5 ML ML SQ SCH ×5 (00:58→21:20)
[2019-09-03] MEDS: dexAMETHasone 10 MG/ML VIAL IV SCH ×3 (01:01→18:11)
--- NOTE | 2019-09-03 07:18 | RAD REPORT ---
EXAM DESCRIPTION: Pan Single View09/03/2019 5:21 am CLINICAL HISTORY: Chest pain COMPARISON: August 31, 2019 FINDINGS: Mild worsening in the bilateral pulmonary opacities The heart remains enlarged IMPRESSION: Mild worsening in bilateral pulmonary opacities probably pneumonia
[2019-09-03] MEDS: levoFLOXacin 500 MG TAB PO SCH (09:44)
[2019-09-03] MEDS: SPIRONOLACTONE 25 MG TABLET PO SCH ×2 (09:45→21:18)
[2019-09-03] MEDS: FUROSEMIDE 20 MG TABLET PO SCH (09:45)
[2019-09-03] MEDS: APIXABAN 5 MG TABLET PO SCH ×2 (09:46→21:19)
--- NOTE | 2019-09-03 12:42 | P.PN ---
Subjective Date of Service: 09/03/19 Chief Complaint: COVID-19 pneumonia Subjective: Improving (Slowly improving is still hypoxic acquiring up to 6 L of oxygen over his sats to go up on deep breaths) Review of Systems General: Weakness Respiratory: Shortness of Breath Physical Examination - Vital Signs Temperature: 98.1 F Blood Pressure: 141/79 Pulse: 93 Respirations: 18 Pulse Ox (%): 91 - Physical Exam General: Alert, In no apparent distress, Oriented x3 - Studies Microbiology Data (last 24 hrs): 08/28/19 18:00 Blood - Blood Aerobic Blood Culture - Final No growth in 5 days. 08/28/19 18:00 Blood - Blood Anaerobic Blood Culture - Final No growth in 5 days. 08/28/19 18:15 Blood - Blood Aerobic Blood Culture - Final No growth in 5 days. 08/28/19 18:15 Blood - Blood Anaerobic Blood Culture - Final No growth in 5 days. Medications List Reviewed: Yes Assessment & Plan - Problems (Diagnosis) (1) COVID-19 virus infection Current Visit: Yes Status: Acute Plan: Patient is improving agree with full anticoagulation and for discharge tomorrow on 4-6 L of oxygen incentive spirometry every 1-2 hr low-dose prednisone 10 mg twice a day an outpatient anticoagulation for 2 weeks high risk for thromboembolism low-dose prednisone
--- NOTE | 2019-09-03 18:45 | P.PN ---
Subjective Date of Service: 09/03/19 Chief Complaint: COVID-19 pneumonia Subjective: Improving Physical Examination - Vital Signs Temperature: 98 F Blood Pressure: 136/80 Pulse: 91 Respirations: 18 Pulse Ox (%): 92 - Physical Exam General: Alert, Cooperative HEENT: Atraumatic Neck: Supple Respiratory: Other (Patient without respiratory distress patient reports improvement) Cardiovascular: Normal pulses Neurological: Normal speech, Normal strength at 5/5 x4 extr, Normal tone, Normal affect - Studies Microbiology Data (last 24 hrs): 08/28/19 18:00 Blood - Blood Aerobic Blood Culture - Final No growth in 5 days. 08/28/19 18:00 Blood - Blood Anaerobic Blood Culture - Final No growth in 5 days. 08/28/19 18:15 Blood - Blood Aerobic Blood Culture - Final No growth in 5 days. 08/28/19 18:15 Blood - Blood Anaerobic Blood Culture - Final No growth in 5 days. Medications List Reviewed: Yes Assessment & Plan Discharge Plan: Home Plan to discharge in: 48 Hours Physician Review Additional Text: Impression: Bilateral pneumonia with hypoxia secondary to COVID 19 infection Diabetes mellitus type 2 Plan: Bilateral pneumonia with hypoxia secondary to COVID 19 infection: Patient reports improvement. Continue current medications. Will wean off high-flow oxygen. Case discussed at length with pulmonology. Anticipate improvement over the next 48 hr. Possible discharge with home oxygen if requirement is 2 L or less. Diabetes mellitus type 2: Continue to adjust insulin therapy. Time Spent Managing Pts Care (In Minutes): 55
[2019-09-04] MEDS: dexAMETHasone 10 MG/ML VIAL IV SCH ×3 (00:12→17:23)
[2019-09-04] MEDS: SPIRONOLACTONE 25 MG TABLET PO SCH (08:27)
[2019-09-04] MEDS: levoFLOXacin 500 MG TAB PO SCH (08:27)
[2019-09-04] MEDS: APIXABAN 5 MG TABLET PO SCH (08:27)
[2019-09-04] MEDS: INSULIN -REGULAR HUMAN 50 UNIT/0.5 ML ML SQ SCH ×3 (08:28→16:30)
[2019-09-04] MEDS: FUROSEMIDE 20 MG TABLET PO SCH (08:28)
[2019-09-04 08:40] VITALS: O2SAT 91
[2019-09-04 11:01] VITALS: BP 111/70; TEMP 98
--- NOTE | 2019-09-04 14:42 | P.DS ---
Admission Date: 08/28/19 Discharge Date: 09/04/19 Primary Care Provider: none Disposition: ROUTINE DISCHARGE Discharge Condition: GOOD Reason for Admission: COVID-19 pneumonia Consultations: Pulmonary-Dr. Sevilla Procedures: Ct Scan: FINDINGS: No pulmonary emboli are identified. The aorta as imaged shows no acute or suspicious finding. No pericardial th ickening or effusion Numerous ground-glass opacities are present throughout both lung oconnell primarily in a peripheral distribution. No dense consolidation. No mass lesion identified. No endobronchial lesions seen. No pleural effusion or pleural thickening. No mediastinal or hilar suspicious masses. No chest wall masses or abnormal axillary lymphadenopathy. IMPRESSION: No pulmonary emboli identified. Bilateral ground-glass opacities throughout the lung oconnell. In the current clinical environment, COVID-19 pneumonia should be strongly considered. Ground-glass opacification from failure or volume overload can have this appearance as well. Medical Problem List: Bilateral pneumonia with hypoxia secondary to COVID 19 infection Diabetes mellitus type 2 Brief History of Present Illness: 48-year-old male with history of diabetes presented to emergency room with increasing shortness of breath. Patient was hypoxic upon evaluation. CT scan revealed viral pneumonia bilateral. Patient was admitted for further evaluation and treatment. Hospital Course: Patient presented with shortness of breast secondary to bilateral pneumonia out with hypoxia secondary to COVID 19 infection. Patient required IV steroids, DVT prophylaxis, and convalescent plasma. The patient was also evaluated by pulmonology. The patient slowly improved. At discharge patient still requires oxygen. He has been able to walk and do adult daily living activities in the room. He is without significant shortness of breath. After discussion with pulmonology and the patient, he was comfortable going home with home oxygen. At discharge home oxygen will be arranged to maintain sats above 93%. Patient currently on 4 L. At discharge patient will continue with prednisone 10 mg 1 pill twice daily for 7 days. Recommendation is for the patient to follow up with pulmonology as a tele visit within 1 week to monitors progress. Pulmonology also recommends that the patient by a pulse oximeter to monitor his oxygen level. Prior to discharge patient will continue quarantine for at least 14 days. Health department will follow his progress. CDC guidelines will be provided. Patient will continue with mask at home and frequent hand washing. Patient with diabetes mellitus type 2. Patient required basal insulin. Patient currently on Lantus. At discharge will recommend to continue Lantus at 30 units subcu at bedtime. He may continue with metformin and bydureon. Recommend to monitor his blood sugars at least twice daily. Recommend to maintain blood sugar less 140 fasting and less than 200 after meals. Patient may increase Lantus by 1-2 units if blood sugars remain above 200. Patient will establish care with a local physician to continue to monitor his blood sugars closely. Vital Signs/Physical Exam: Temp Pulse Resp BP Pulse Ox 98 F 75 18 111/70 92 09/04/19 12:00 09/04/19 12:00 09/04/19 12:00 09/04/19 12:00 09/04/19 12:00 General: Alert, In no apparent distress, Oriented x3, Cooperative HEENT: Atraumatic Neck: Supple Respiratory: Other (Patient breathing appropriately. No labored breathing noted.) Cardiovascular: Normal pulses, Regular rate/rhythm Neurological: Normal speech, Normal strength at 5/5 x4 extr, Normal tone, Normal affect Laboratory Data at Discharge: WBC 9.7 K/uL (4.3-10.9) D 08/29/19 06:33 Hgb 13.8 g/dL (13.6-17.9) 08/29/19 06:33 Hct 40.4 % (39.6-49.0) 08/29/19 06:33 Plt Count 136 K/uL (152-406) L D 08/29/19 06:33 PT 12.4 SECONDS (9.5-12.5) 08/29/19 06:33 INR 1.05 08/29/19 06:33 APTT 28.7 SECONDS (24.3-36.9) 08/29/19 06:33 Sodium Cancelled 09/02/19 22:45 Potassium Cancelled 09/02/19 22:45 BUN Cancelled 09/02/19 22:45 Creatinine Cancelled 09/02/19 22:45 Glucose Cancelled 09/02/19 22:45 Phosphorus 2.7 mg/dL (2.5-4.9) 08/29/19 06:33 Magnesium 2.2 mg/dL (1.8-2.4) 08/29/19 06:33 Total Bilirubin 0.7 mg/dL (0.2-1.0) 08/29/19 06:33 AST 66 U/L (15-37) H 08/29/19 06:33 ALT 56 U/L (12-78) 08/29/19 06:33 Alkaline Phosphatase 58 U/L (45-117) 08/29/19 06:33 Triglycerides 128 mg/dL (<150) 08/29/19 06:33 Cholesterol 125 mg/dL (<200) 08/29/19 06:33 HDL Cholesterol 39 mg/dL (40-60) L 08/29/19 06:33 Cholesterol/HDL Ratio 3.21 08/29/19 06:33 Lipase 65 U/L (73-393) L 08/28/19 18:15 Home Medications: Exenatide Microspheres [Bydureon Pen] 1 noah SQ EVERY 7TH DAY 08/28/19 Metformin HCl [Glucophage] 1 tab PO BID 08/28/19 Insulin Glargine Human [Lantus] 30 unit SQ BEDTIME #1 vial 09/04/19 predniSONE [Deltasone*] 10 mg PO BID #14 tab 09/04/19 New Medications: predniSONE [Deltasone*] 10 mg PO BID #14 tab Insulin Glargine Human [Lantus] 30 unit SQ BEDTIME #1 vial Patient Discharge Instructions: 1. Please go over patient instructions, recommendations and medications. 2. Patient presented with shortness of breast secondary to bilateral pneumonia out with hypoxia secondary to COVID 19 infection. Patient required IV steroids, DVT prophylaxis, and convalescent plasma. The patient was also evaluated by pulmonology. The patient slowly improved. At discharge patient still requires oxygen. He has been able to walk and do adult daily living activities in the room. He is without significant shortness of breath. After discussion with pulmonology and the patient, he was comfortable going home with home oxygen. At discharge home oxygen will be arranged to maintain sats above 93%. Patient currently on 4 L. At discharge patient will continue with prednisone 10 mg 1 pill twice daily for 7 days. Recommendation is for the patient to follow up with pulmonology as a tele visit within 1 week to monitors progress. Pulmonology also recommends that the patient by a pulse oximeter to monitor his oxygen level. Prior to discharge patient will continue quarantine for at least 14 days. Health department will follow his progress. CDC guidelines will be provided. Patient will continue with mask at home and frequent hand washing. 3. Patient with diabetes mellitus type 2. Patient required basal insulin. Patient currently on Lantus. At discharge will recommend to continue Lantus at 30 units subcu at bedtime. He may continue with metformin and bydureon. Recommend to monitor his blood sugars at least twice daily. Recommend to maintain blood sugar less 140 fasting and less than 200 after meals. Patient may increase Lantus by 1-2 units if blood sugars remain above 200. Patient will establish care with a local physician to continue to monitor his blood sugars closely. Diet: ADA Activity: Ad calli Time spent managing pt's care (in minutes): 55
== END 2019-09-04 19:55 | disposition home or self-care (01) | DRG 177 ==
LOC: ER 16:50 → ERHOLD 20:21 → 4TH 20:44
PROVIDERS: ADMIT Hospitalist; ATTEND Family Medicine
PROC: 8E0ZXY6 Isolation (ICD-10-PCS; principal; 2019-08-28)
PROC: 30233K1 Transfusion of Nonautologous Frozen Plasma into Peripheral Vein, Percutaneous Approach (ICD-10-PCS; 2019-09-02)
DX: U07.1 COVID-19 (principal); J12.89 Other viral pneumonia; Z68.41 Body mass index [BMI] 40.0-44.9, adult; E66.9 Obesity, unspecified; E11.9 Type 2 diabetes mellitus without complications; R09.02 Hypoxemia; Z79.84 Long term (current) use of oral hypoglycemic drugs; Z79.899 Other long term (current) drug therapy
CPT/HCPCS: 36415; 36430; 71045; 71275; 80048; 80053; 80061; 80076; 81003; 81015; 82728; 82947; 83605; 83690; 83735; 83880; 84100; 84132; 84145; 84439; 84443; 84484; 85025; 85379; 85610; 85730; 86140; 86850; 86900; 86901; 86927; 87040; 87070; 87081; 87804; 93005; 94660; 94760; 96361; 96365; 96375; 99285; J0456; J0696; J1100; J1650; J1815; J1940; J7030; Q9967; U0002